=== PATIENT | female | born 1985 | race Caucasian/White ===

== ENCOUNTER 2016-10-18 14:11 | Emergency (ER) | payer OTHER ==
[~2016-10-18] VITALS: Ht 165.1 cm; Wt 71.2 kg
[~2016-10-18 14:11] MED LIST: CIPR-255 PO; OXYC-57 PO; TOPI50TA16 PO
[2016-10-18 14:22] VITALS: TEMP 37; Ht 165.1 cm; Wt 71.2 kg
[2016-10-18 14:28] VITALS: O2SAT 98
[2016-10-18 14:34] LABS: BASO ABS # 0.06 K/uL (0-0.2); COMPLETE YES; EOS % 1.9 %; HEMATOCRIT 39.8 % (37-47); IG% 0.2 %; LYMPH % 28.7 %; LYMPH ABS # 1.65 K/uL (1.2-3.4); MEAN CELL VOLUME 89.2 fL (80-100); MEAN CORPUSCULAR HEMOGLOBIN 31.6 pg (25-34); MEAN CORPUSCULAR HGB CONC 35.4 g/dl (32-36); MEAN PLATELET VOLUME 9.1 fL (7.4-10.4); MONO % 6.8 %; NEUT % 61.4 %; PLATELET COUNT 339 K/uL (130-400); RED BLOOD COUNT 4.46 M/uL (4.2-5.4); WHITE BLOOD COUNT 5.74 K/uL (4.8-10.8)
[2016-10-18 14:42] LABS: BUN/CREATININE RATIO 11.6 (10-20); CALCIUM 8.7 mg/dl (8.5-10.1); CREATININE 0.89 mg/dl (0.60-1.20); POTASSIUM 3.7 mmol/L (3.5-5.1)
[2016-10-18 14:43] LABS: PARTIAL THROMBOPLASTIN RATIO 0.9
--- NOTE | 2016-10-18 15:22 | DIAGNOSTIC IMAGING REPORT ---
CHEST ONE VIEW PORTABLE CLINICAL HISTORY: Atypical chest pain COMPARISON STUDY: No previous studies for comparison. FINDINGS: The cardiac and mediastinal contours are normal. There is no evidence of focal pulmonary consolidation. There is no evidence of failure. No pleural effusions are visualized.[ Differential attenuation hemithoraces is felt to be secondary to technical factors. IMPRESSION: No active disease in the chest. Electronically signed by: Ha Richards M.D. 10/18/2016 3:20 PM Dictated Date/Time: 10/18/2016 3:20 PM
[2016-10-18 17:17] VITALS: BP 118/69; PULSE 77; O2SAT 97
--- NOTE | 2016-10-18 20:34 | EMERGENCY ROOM VISIT NOTE ---
History Report prepared by Jean: Kathy Deshpande Under the Supervision of: Dr. Paul Hui M.D. First contact with patient: 14:20 Chief Complaint: CHEST PAIN Stated Complaint: CHEST PAIN History of Present Illness The patient is a 30 year old female who presents to the Emergency Room with complaints of resolved right-sided chest pain that started 2.5 hours ago, around 1200. The patient came to the ED via ambulance. She was given 3 nitro en route, which relieved her pain. The pain started while she was at work. She states that the pain radiated into the left side of her chest and down her left arm. The patient states that the pain felt sharp with tightness. The pain was constant and lasted for about 20 minutes, up until it was relieved with the nitro she was given in the ambulance. The patient also experienced some shortness of breath with the pain along with lightheadedness and nausea. The patient states that she also felt hot when the pain started and her friend noticed that she was "clammy." The patient denies fevers, abdominal pain, and lower extremity edema. The patient states that she has experienced intermittent chest pain the past, but never as sharp as it was earlier today. She adds that she has bradycardia and is supposed to go to [facility] to see about having a pacemaker placed. She states that they never mentioned anything about blockages in her heart, but she states that her medical staff coordinator told her the blood doesn't circulate in her heart correctly. The patient denies being on medication for bradycardia along with any previous heart catheterizations. The patient's friend adds that the patient was started on Cardizem 2 weeks ago and then experienced syncope last week. She was seen at the [facility] after the syncopal event and they recommended stopping the Cardizem.The patient states that she follows with Dr. Omer - [place] [facility] for her heart problems and when she told him about her previous episodes of chest pain, he didn't think much of it. The patient denies any recent long trips. She states that she is not on control because she has a history of a hysterectomy. She also states that she is not on hormone replacement therapy. Source of History: patient, friend, other ([facility] records) Onset: 2.5 hours ago, around 1200 Position: chest (right) Quality: sharp, other (tightness) Timing: resolved Modifying Factors (Relieving): other (nitro) Associated Symptoms: + chest pain (left-sided), + nausea, No abdominal pain , No fevers Note: felt hot, "clammy", lightheadedness, left arm pain, no lower extremity edema Review of Systems See HPI for pertinent positives & negatives. A total of 10 systems reviewed and were otherwise negative. Past Medical & Surgical Medical Problems: (1) H/O: cholecystectomy Surgical Problems: (1) H/O: hysterectomy Family History Patient reports no known family medical history. Social History Smoking Status: Unknown if Ever Smoked Alcohol Use: none Marital Status: single Occupation Status: unemployed Current/Historical Medications Scheduled Cyanocobalamin (Cyanocobalamin), 1 DOSE INJ WK Escitalopram (Lexapro), 1 TAB PO QPM Topiramate (Topamax), 200 MG PO QAM Topiramate (Topamax), 300 MG PO QPM Allergies Coded Allergies: No Known Allergies (Verified , 01/28/13) Physical Exam Vital Signs Date Time Temp Pulse Resp B/P Pulse Ox O2 Delivery O2 Flow Rate FiO2 10/18/16 17:17 77 18 118/69 97 10/18/16 16:35 80 18 111/64 97 Room Air 10/18/16 15:10 75 16 122/65 98 Room Air 10/18/16 14:28 98 Room Air 10/18/16 14:26 100 10/18/16 14:22 37.0 101 15 129/78 99 Room Air Physical Exam Constitutional: Vital signs reviewed. Eyes: Pupils are equal round reactive to light. Conjunctiva are noninjected. ENT: Pharynx is clear without erythema or exudate. Mucous membranes are moist. Neck supple without meningeal signs. Respiratory: Clear to auscultation bilaterally. Breath sounds are equal bilaterally. Cardiovascular: Regular rate and rhythm. No rubs or gallops. GI: Soft, nondistended and nontender. Bowel sounds are present. Musculoskeletal: No peripheral edema. No lower extremity tenderness. Integumentary: No cyanosis. Neurological: The patient is awake and alert. No focal deficits. Psychiatric: Normal affect. Medical Decision & Procedures ER Provider Diagnostic Interpretation: X-ray results as stated below per interpretation by me and the radiologist: CHEST ONE VIEW PORTABLE IMPRESSION: No active disease in the chest. Electronically signed by: Ha Richards M.D. 10/18/2016 3:20 PM Dictated Date/Time: 10/18/2016 3:20 PM Laboratory Results 10/18/16 14:00 Red Blood Count 4.46, Mean Corpuscular Volume 89.2, Mean Corpuscular Hemoglobin 31.6, Mean Corpuscular Hemoglobin Concent 35.4, Mean Platelet Volume 9.1, Neutrophils (%) (Auto) 61.4, Lymphocytes (%) (Auto) 28.7, Monocytes (%) (Auto) 6.8, Eosinophils (%) (Auto) 1.9, Basophils (%) (Auto) 1.0, Neutrophils # (Auto) 3.52, Lymphocytes # (Auto) 1.65, Monocytes # (Auto) 0.39, Eosinophils # (Auto) 0.11, Basophils # (Auto) 0.06 10/18/16 14:00 Test 10/18/16 14:00 10/18/16 14:36 10/18/16 16:27 White Blood Count 5.74 K/uL (4.8-10.8) Red Blood Count 4.46 M/uL (4.2-5.4) Hemoglobin 14.1 g/dL (12.0-16.0) Hematocrit 39.8 % (37-47) Mean Corpuscular Volume 89.2 fL (80-100) Mean Corpuscular Hemoglobin 31.6 pg (25-34) Mean Corpuscular Hemoglobin Concent 35.4 g/dl (32-36) Platelet Count 339 K/uL (130-400) Mean Platelet Volume 9.1 fL (7.4-10.4) Neutrophils (%) (Auto) 61.4 % Lymphocytes (%) (Auto) 28.7 % Monocytes (%) (Auto) 6.8 % Eosinophils (%) (Auto) 1.9 % Basophils (%) (Auto) 1.0 % Neutrophils # (Auto) 3.52 K/uL (1.4-6.5) Lymphocytes # (Auto) 1.65 K/uL (1.2-3.4) Monocytes # (Auto) 0.39 K/uL (0.11-0.59) Eosinophils # (Auto) 0.11 K/uL (0-0.5) Basophils # (Auto) 0.06 K/uL (0-0.2) RDW Standard Deviation 42.2 fL (36.4-46.3) RDW Coefficient of Variation 13.0 % (11.5-14.5) Immature Granulocyte % (Auto) 0.2 % Immature Granulocyte # (Auto) 0.01 K/uL (0.00-0.02) Prothrombin Time 11.0 SECONDS (9.0-12.0) Prothromb Time International Ratio 1.0 (0.9-1.1) Activated Partial Thromboplast Time 24.3 SECONDS (21.0-31.0) Partial Thromboplastin Ratio 0.9 Anion Gap 8.0 mmol/L (3-11) Est Creatinine Clear Calc Drug Dose 91.5 ml/min Estimated GFR () 100.8 Estimated GFR (Non- 87.0 BUN/Creatinine Ratio 11.6 (10-20) Calcium Level 8.7 mg/dl (8.5-10.1) Bedside D-Dimer 338 ng/mlFEU (0-450) Bedside Troponin I 0.000 ng/ml (0-0.045) Laboratory results as reviewed by me. ECG Indication: chest pain Rate (beats per minute): 91 Rhythm: normal sinus Findings: no acute ischemic change, no ectopy ED Course 1421: The patient was evaluated in room B12. A complete history and physical exam was performed. 1432: I spoke with Dr. Omer of Cardiology in [place]. We discussed the patient. He said that she has had a normal echocardiogram as well as a normal stress test. He adds that the patient's only positive test after her recent evaluation at the [facility] was a tilt table test. The patient was diagnosed with orthostatic syncope and he states that she is not scheduled to have a pacemaker placed. 1457: I spoke with Dr. Palomino of Cardiology. We discussed the patient. I asked if we could arrange for a stress test today, but he said that he was unsure because the lab is extremely busy today. He is going to get back to me. 1458: I talked to the patient and discussed her test results. I explained that we will attempt to get a stress test, but if it isn't possible then we will repeat a second set of enzymes and have her follow-up with her medical staff coordinator. The patient is also still waiting on her chest x-ray. 1500: Dr. Palomino informed me that they cannot do the stress test today. 1502: The patient's records were obtained from her recent visit at the [facility]. Refer to the [facility] for further details. 1527: I reassessed the patient and let her know that they can't do the stress test today. I am going to repeat a troponin and have her follow-up with her medical staff coordinator if its negative. 1648: Upon reevaluation, the patient appeared to have improvement of her symptoms. I discussed today's findings and the limitations of a workup here with her. I recommended close follow-up with outpatient cardiology for a stress test. I also informed her to take aspirin daily and avoid exertion. She said that might try to get a second opinion from Dr. Barker - Cardiology who was recommended to her. She verbalized agreement of the treatment plan. She was discharged home. Medical Decision This is a 30-year-old female presents with chest pain. Differential diagnosis includes pulmonary embolism, pleurisy, pneumonia, GERD, anxiety, unstable angina , CT. I did perform a limited focused review of portions of the patient's old chart on the electronic medical record. The patient has had no recent pertinent visits to this hospital. Per the patient's notes from her visit at the [facility]. She was evaluated there on October 07 for a syncopal episode. The provider noted that the patient experienced a similar episode about a year ago with the same complaints. The patient had a MRI of her brain, an EEG, and a positive tilt table test. She was diagnosed with neurocardiogenic syncope and placed on diltiazem. She was discharged after evaluation in the ED. Additionally , her glucose was 63 when she was evaluated, so they fed her. I did evaluate the patient as noted above. The patient is presenting with sharp chest pain which resolved with nitroglycerin. Her only known risk factors for cardiac disease are family history. Her father had cardiomyopathy and heart disease in his 40s and eventually of heart disease. The patient states she is not a smoker. I did speak to her medical staff coordinator's over the phone who stated that he was not concerned about ischemic disease for her. He has seen her in the past for chest pain and she has had a stress test and echocardiogram. He does state that she does have neurocardiogenic syncope. 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 I did order and personally review the patient's 12-lead EKG and chest x-ray as described above. Her twelve-lead EKG does not demonstrate any acute ischemic changes. Her chest x-ray is unremarkable. I did order and review the patient's blood work as noted in the electronic medical record. Troponin 2 is negative. D-dimer is negative. I did originally attempt to order a stress echocardiogram but Dr. Palomino of cardiology stated that they were unable to accommodate her. I therefore ordered a second troponin which was also 0. I did discuss the test results with the patient and her can vacuum tester's. She is not having any chest discomfort at this time. I did discuss the limitations of the testing done here in the emergency department regarding chest pain and recommended close follow up with her medical staff coordinator for outpatient stress testing and further evaluation as needed. She was advised to take aspirin daily and avoid exertion and to return immediately or go to her nearest hospital should she have any recurrent symptoms. The patient stated that she would either follow with Dr. Omer or seek a second opinion with Dr. Celis or another medical staff coordinator. The patient was discharged in good condition. Consults Time Called: [phone] Consulting Physician: Dr. Omer - Cardiology in [place] Returned Call: [phone] Omer of Cardiology in [place]. We discussed the patient. He said that she has had a normal echocardiogram as well as a normal stress test. He adds that the patient's only positive test after her recent admission to the [facility] was a tilt table test. The patient was diagnosed with orthostatic syncope and he states that she is not scheduled to have a pacemaker placed. Additional Consults: Time Called: 1453 Consulted Physician: Dr. Palomino - Cardiology Returned Call: [phone] Additional Comments: I spoke with Dr. Palomino of Cardiology. We discussed the patient. I asked if we could arrange for a stress test today, but he said that he was unsure because the lab is extremely busy today. He is going to get back to me. Impression Primary Impression: Acute chest pain Scribe Attestation The scribe's documentation has been prepared under my direct and personally reviewed by me in its entirety. I confirm that the note above accurately reflects all work, treatment, procedures, and medical decision making performed by me. Departure Information Dispostion Home / Self-Care Referrals Valdo Fragoso M.D. (PCP) Forms HOME CARE DOCUMENTATION FORM, IMPORTANT VISIT INFORMATION Patient Instructions My [facility] Additional Instructions You have been examined and treated today on an emergency basis only. This is not a substitute for, or an effort to provide, complete comprehensive medical care. It is impossible to recognize and treat all injuries or illnesses in a single emergency department visit. It is therefore important that you follow up closely with your physician and medical staff coordinator for further testing and outpatient cardiac stress testing. Call as soon as possible for an appointment. Return immediately or go to your nearest hospital for worsening symptoms or if you develop shortness of breath, profuse sweating or any other concerning symptoms. Take an aspirin daily. Avoid exertion.
[2016-10-30] MEDS ORDERED: ESCI10TA17 PO (14:42)
[2016-10-30] MEDS ORDERED: CYNI1000 INJ (14:42)
[2016-10-30] MEDS ORDERED: TOPI100T34 PO (14:42)
[2016-10-30] MEDS ORDERED: TOPI200T6 PO (14:42)
== END 2016-10-18 17:18 | disposition home or self-care (01) ==
LOC: EDBD 14:11 → C.EDB 14:13
DX: R07.9 Chest pain, unspecified (principal); Z90.710 Acquired absence of both cervix and uterus; Z90.49 Acquired absence of other specified parts of digestive tract; Z79.899 Other long term (current) drug therapy

== ENCOUNTER 2016-10-30 18:09 | Emergency (ER) | payer OTHER ==
[~2016-10-30] VITALS: Ht 165.1 cm; Wt 70.4 kg
[~2016-10-30 18:09] MED LIST changes: -CIPR-255 PO; +CYNI1000 INJ; +ESCI10TA17 PO; -OXYC-57 PO; +TOPI100T34 PO; +TOPI200T6 PO; -TOPI50TA16 PO
[2016-10-30 18:14] VITALS: TEMP 36.9; Ht 165.1 cm; Wt 70.4 kg
[2016-10-30] MEDS ORDERED: TRAZ50TA35 PO (18:58)
--- NOTE | 2016-10-30 19:03 | EMERGENCY ROOM VISIT NOTE ---
History Report prepared by Jean: Kathy Deshpande Under the Supervision of: Dr. Delroy Casper M.D. First contact with patient: 18:18 Chief Complaint: CHEST PAIN Stated Complaint: CHEST PAIN, SNYCOPE- PHYSICIAN REFERRED Nursing Triage Summary: Pt presents with diffuse chest pain across chest for approx 2 wks, pain into left arm. Syncopal episode at work lasting approx 2 mins. Pt states she has been passing out every day. SOB. Pt states told on Fri that she probably needs a pacemaker. Pt states, "My chest always feels real tight." History of Present Illness The patient is a 30 year old female who presents to the Emergency Room with complaints of a sudden episode of syncope that occurred earlier today. The patient states that she experienced syncope while she was sitting in a chair at work. 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 When the patient regained consciousness, she told them to cancel the call for the ambulance. She then called her cell manager, Dr. Acevedo, and he recommended coming into the ED for further evaluation. Currently, the patient is fatigued, but she states that is normal for her after syncopal episodes. The patient states that she has experienced syncope every day this week and that today's episode wasn't any different than her normal syncopal events. She adds that she has been experiencing intermittent syncope for almost a year now. Additionally, the patient has been experiencing diffuse chest pain for the past 2 weeks that occasionally radiates into her left arm. She is also experiencing shortness of breath. The patient saw Dr. Acevedo for the first time 2 days ago. He wanted to take some time to get all of her records to determine if her symptoms are a result of her heart or her blood pressure. The patient's friend states that the patient had a Holter monitor a while ago and all it showed was a low heart rate. The patient is not on any medications for her heart currently. She was worked up in the ED for the same symptoms on October 18, 2016. The patient states that she was told that she may need a pacemaker. Source of History: patient Onset: earlier today Position: other (global) Quality: other (syncope) Timing: other (sudden) Associated Symptoms: + SOB, + chest pain, + fatigue Note: left arm pain Review of Systems See HPI for pertinent positives & negatives. A total of 10 systems reviewed and were otherwise negative. Past Medical & Surgical Medical Problems: (1) H/O: cholecystectomy Surgical Problems: (1) H/O: hysterectomy Family History Patient reports no known family medical history. Social History Smoking Status: Never Smoker Alcohol Use: none Marital Status: single Occupation Status: unemployed Current/Historical Medications Scheduled Cyanocobalamin (Cyanocobalamin), 1 DOSE INJ WK Escitalopram (Lexapro), 1 TAB PO QPM Topiramate (Topamax), 200 MG PO QAM Topiramate (Topamax), 300 MG PO QPM Scheduled PRN Trazodone Hcl (Trazodone), 1-2 TABS PO HS PRN for Sleep Allergies Coded Allergies: No Known Allergies (Verified , 01/28/13) Physical Exam Vital Signs Date Time Temp Pulse Resp B/P Pulse Ox O2 Delivery O2 Flow Rate FiO2 10/30/16 19:12 79 17 110/73 97 10/30/16 18:31 76 10/30/16 18:14 36.9 88 18 113/71 96 Room Air Physical Exam GENERAL: Patient is well appearing and in no acute distress. HEENT: No acute trauma, normocephalic atraumatic, mucous membranes moist, no nasal congestion, no scleral icterus. NECK: No stridor, no adenopathy, no meningismus, trachea is midline. LUNGS: No dyspnea. Clear to auscultation and equal bilaterally. No wheeze, no rhonchi. HEART: Regular rate and rhythm. No murmurs, rubs, gallops appreciated. ABDOMEN: Soft, nontender, bowel sounds positive, no masses appreciated, no peritonitis. BACK: No midline tenderness, no CVA tenderness EXTREMITIES: Normal motion all extremities, no cyanosis, no edema. NEUROLOGIC: Alert and oriented, no acute motor or sensory deficits, no focal weakness, cranial nerves grossly intact. SKIN: No rash, no jaundice, no diaphoresis. Medical Decision & Procedures ECG Indication: chest pain, syncope Rate (beats per minute): 86 Rhythm: normal sinus Findings: no acute ischemic change, no ectopy ED Course 1821: The patient was evaluated in room A11. A complete history and physical exam was performed. 1846: Discussed the patient's case with Dr. Hensley - Cardiology. He reviewed the patient's outpatient chart with me and agrees that there is not indication for further testing or admission. 1851: Reevaluated the patient. Discussed results and discharge instructions: she verbalized understanding and agreement. The patient is ready for discharge. Medical Decision Differential: Vaso-vagal, Intracerebral Event, Neurologic, Infectious, Volume Deficiency, Hypoglycemia, Electrolyte Abnormality, Cardiac Source, Toxicologic, amongst other pathologies entertained. 30 yr old female with daily syncope for over a year. Vast extensive testing ( including admissions) done with no findings. Was just here a few days ago with cardiac rule out. Already with stress testing, echo's, holter monitors, eegs ( reportedly), etc. Discussed with cardiology who reviewed outpatient notes and do not see indication for further work-up at this time. From emergent standpoint I do not feel she requires emergency labs, imaging, admission. She is completely stable here. I discussed with her fact that ER has limitations and that I would be willing to repeat all work-up from other day though she agrees with its likely futility. Stable and in no distress. Will continue outpatient follow up with Dr Acevedo. Aware RTED at any time if worsening or other concerns. She does not drive and understands she must avoid any dangerous activities until this if further figured out. Consults Time Called: 1827 Consulting Physician: Dr. Hensley - Cardiology Returned Call: [phone] Discussed the patient's case with Dr. Hensley - Cardiology. He reviewed the patient's outpatient chart with me and agrees that there is not indication for further testing or admission. Impression Primary Impression: Syncope Scribe Attestation The scribe's documentation has been prepared under my direction and personally reviewed by me in its entirety. I confirm that the note above accurately reflects all work, treatment, procedures, and medical decision making performed by me. Departure Information Dispostion Home / Self-Care Referrals No Doctor, Assigned (PCP) Forms HOME CARE DOCUMENTATION FORM, IMPORTANT VISIT INFORMATION Patient Instructions Fainting (Syncope) - [facility], My [facility] Problem Qualifiers Primary Impression: Syncope Encounter type: initial encounter
[2016-10-30 19:12] VITALS: BP 110/73; PULSE 79; O2SAT 97
== END 2016-10-30 19:14 | disposition home or self-care (01) ==
LOC: C.EDB 18:11 → C.EDA 19:14
DX: R55 Syncope and collapse (principal); Z90.710 Acquired absence of both cervix and uterus; Z90.49 Acquired absence of other specified parts of digestive tract; Z79.899 Other long term (current) drug therapy